=== PATIENT | male | born 1990 | race African-American/Black ===

== ENCOUNTER 2018-02-01 03:53 | Emergency (ER) | payer OTHER ==
[2018-02-01] MEDS ORDERED: Ketorolac Tromethamine 30 MG/ML VIAL ONE (04:18)
== END 2018-02-01 04:45 | disposition home or self-care (01) ==
LOC: SCSER 03:53
DX: S33.5XXA Sprain of ligaments of lumbar spine, initial encounter (principal)
CPT/HCPCS: 96372; J1885